=== PATIENT | male | born 1985 | race Caucasian/White ===

== ENCOUNTER 2018-08-25 10:22 | Outpatient (CLI) | payer BC ==
--- NOTE | 2018-08-25 10:55 | ULT ---
Exam: Right upper quadrant ultrasound: HISTORY: Elevated LFTs COMPARISON: None FINDINGS: Visualized liver:Unremarkable. Gallbladder:No evidence of gallstones. Possible mild focal gallbladder wall thickening. Negative Murp hy's sign. Common bile duct:Within normal limits. The visualized pancreas and right kidney are unremarkable. No evidence for abscess or abnormal fluid collection in the right upper quadrant. IMPRESSION: Unremarkable right upper quadrant ultrasound. No evidence of gallstones.
== END 2018-08-25 10:23 | disposition home or self-care (01) ==
LOC: SCSULT 10:22
PROVIDERS: ATTEND Nurse Practitioner Family
DX: R74.8 Abnormal levels of other serum enzymes (principal)
CPT/HCPCS: 76705